=== PATIENT | male | born 1970 | race Caucasian/White ===

== ENCOUNTER 2018-04-16 09:00 | Emergency (ER) | payer OTHER, SELFPAY ==
[2018-04-16 09:03] VITALS: BP 135/77; PULSE 80; RESP 16; TEMP 37
--- NOTE | 2018-04-16 09:20 | ED.GENADUL ---
Disposition Clinical Impression: Corneal abrasion, left Disposition: HOME Condition: Good Instructions: Corneal Abrasion (ED) Additional Instructions: Please apply the antibiotic ointment 3 times a day. Please take Tylenol and Motrin as needed. Please use ice over your eye for any pain. Please follow-up with your environmental compliance officer or anesthesiology fellow in the next 24-48 hours. If you notice any worsening of your symptoms, or any new symptoms such as swelling in your eye, worsening discharge, worsening vision, cloudiness in your eye, vomiting, diarrhea, fever, chills, shortness of breath, chest pain, numbness, weakness, or fainting , please return immediately to the emergency department for reevaluation. Please follow up with your primary care provider as soon as possible for reassessment and reevaluation. As always, it was a pleasure participating in your medical care today. Medical Decision Making - Medical Decision Making This is a 47-year-old male with no medical problems who presents with left eye pain. He was struck in the eye by which ample working on a [employer] last night. He has mild pain since then. He is not a contact lens wear. Physical exam demonstrates evidence of a small corneal abrasion over the pupil. No evidence of foreign body, rust ring, or other abnormality. Patient's pain was completely resolved with tetracaine. Patient will be given erythromycin ointment, discharged home with close follow-up in the next 24-48 hours with ophthalmology at his home in [place]. We discussed red flags which to return the patient understands. I have extensively reviewed the treatment plan and discharge instructions with the patient and their family. I have addressed all patient concerns at this time. The patient and family was made aware of what symptoms to monitor for that would warrant a return to the emergency department. Discussed the plan with the patient and family, they demonstrate verbal understanding and agreement with our assessment and plan at this time. History of Present Illness - General Chief complaint: EyeProblem Stated complaint: EYE PROBLEM Time Seen by Provider: 04/16/18 09:20 - History of Present Illness Initial comments: This is a 47-year-old male with no significant past medical history, no prior surgeries, no medications who presents today for left eye pain he was working last night with a chainsaw and a wood chip flew got him in his left eye. He had immediate pain, he has been icing it since then and washed it out initially. He had continued pain this morning, with no significant relief of symptoms and so he came here for evaluation. He denies any headache, fever, chills, vomiting, diarrhea, rash, chest pain, shortness of breath, dysuria or hematuria. He does admit to mild blurry vision in the left eye secondary to the pain, he also admits to increased tearing in his left eye. Patient denies any IV or illicit drug use. He has no other complaints at this time. - Related Data Allergies Allergy/AdvReac Type Severity Reaction Status Date / Time No Known Allergies Allergy Unverified 04/16/18 09:08 Review of Systems Other: 10 point review of systems was performed, pertinent positives and negatives are noted in the history of present illness. General Exam - Other Other exam information: 1.Const: Well-nourished, Well-developed, appearing stated age 2.Eyes: PERRL, no conjunctival injection, patient does demonstrate minimal swelling of the left lid. No pain with movement of the eye. No signs of luan-orbital cellulitis or orbital cellulitis. Fluorescein stain does show evidence of a corneal abrasion over the pupil in the left eye. Eversion of the lid demonstrates no evidence of retained foreign body, no foreign body noted on eye. No rust ring. Vision is intact in the left eye. Color vision is intact. 3.ENT: Atraumatic external nose and ears. Moist MM. Neck: Symmetric, trachea midline, No thyromegaly. There is no evidence of raccoon eyes, gillis sign, CSF rhinorrhea, mastoid tenderness, cranial crepitus, hemotympanum, exophthalmos, or hyphema. 4.CVS: +S1/S2, No murmurs or gallops. Peripheral pulses 2+ and equal in all extremities. Brisk capillary refill in all extremities. 5.RESP: Unlabored respiratory effort. Clear to auscultation bilaterally. No wheezes rales or rhonchi 6.GI: Soft, Nontender/Nondistended, No hepatosplenomegaly. No guarding or rebound. 7.MSK: Normocephalic/Atraumatic, Extremities w/o deformity or ttp No cyanosis or clubbing, Normal movement of all extremities 8.Skin: Warm, Dry. No rashes or lesions. 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 Sensation grossly intact, no focal neurologic deficits. 10.Psych: (AAO) x3. Appropriate mood and affect Course Vital Signs - 24 hr 04/16/18 09:03 Temperature 37 C Pulse 80 Respiratory 16 Rate Blood Pressure 135/77
--- NOTE | 2018-04-16 09:23 | ED.GENADUL_ITS ---
Disposition Clinical Impression: Corneal abrasion, left Disposition: HOME Condition: Good Instructions: Corneal Abrasion (ED) Additional Instructions: Please apply the antibiotic ointment 3 times a day. Please take Tylenol and Motrin as needed. Please use ice over your eye for any pain. Please follow-up with your brick cleaner or plant utilities engineer in the next 24-48 hours. If you notice any worsening of your symptoms, or any new symptoms such as swelling in your eye, worsening discharge, worsening vision, cloudiness in your eye, vomiting, diarrhea, fever, chills, shortness of breath, chest pain, numbness, weakness, or fainting , please return immediately to the emergency department for reevaluation. Please follow up with your primary care provider as soon as possible for reassessment and reevaluation. As always, it was a pleasure participating in your medical care today. Medical Decision Making - Medical Decision Making This is a 47-year-old male with no medical problems who presents with left eye pain. He was struck in the eye by which ample working on a [employer] last night. He has mild pain since then. He is not a contact lens wear. Physical exam demonstrates evidence of a small corneal abrasion over the pupil. No evidence of foreign body, rust ring, or other abnormality. Patient's pain was completely resolved with tetracaine. Patient will be given erythromycin ointment, discharged home with close follow-up in the next 24-48 hours with ophthalmology at his home in [place]. We discussed red flags which to return the patient understands. I have extensively reviewed the treatment plan and discharge instructions with the patient and their family. I have addressed all patient concerns at this time. The patient and family was made aware of what symptoms to monitor for that would warrant a return to the emergency department. Discussed the plan with the patient and family, they demonstrate verbal understanding and agreement with our assessment and plan at this time. History of Present Illness - General Chief complaint: EyeProblem Stated complaint: EYE PROBLEM Time Seen by Provider: 04/16/18 09:20 - History of Present Illness Initial comments: This is a 47-year-old male with no significant past medical history, no prior surgeries, no medications who presents today for left eye pain he was working last night with a chainsaw and a wood chip flew got him in his left eye. He had immediate pain, he has been icing it since then and washed it out initially. He had continued pain this morning, with no significant relief of symptoms and so he came here for evaluation. He denies any headache, fever, chills, vomiting, diarrhea, rash, chest pain, shortness of breath, dysuria or hematuria. He does admit to mild blurry vision in the left eye secondary to the pain, he also admits to increased tearing in his left eye. Patient denies any IV or illicit drug use. He has no other complaints at this time. - Related Data Allergies Allergy/AdvReac Type Severity Reaction Status Date / Time No Known Allergies Allergy Unverified 04/16/18 09:08 Review of Systems Other: 10 point review of systems was performed, pertinent positives and negatives are noted in the history of present illness. General Exam - Other Other exam information: 1.Const: Well-nourished, Well-developed, appearing stated age 2.Eyes: PERRL, no conjunctival injection, patient does demonstrate minimal swelling of the left lid. No pain with movement of the eye. No signs of luan- orbital cellulitis or orbital cellulitis. Fluorescein stain does show evidence of a corneal abrasion over the pupil in the left eye. Eversion of the lid demonstrates no evidence of retained foreign body, no foreign body noted on eye. No rust ring. Vision is intact in the left eye. Color vision is intact. 3.ENT: Atraumatic external nose and ears. Moist MM. Neck: Symmetric, trachea midline, No thyromegaly. There is no evidence of raccoon eyes, gillis sign, CSF rhinorrhea, mastoid tenderness, cranial crepitus, hemotympanum, exophthalmos , or hyphema. 4.CVS: +S1/S2, No murmurs or gallops. Peripheral pulses 2+ and equal in all extremities. Brisk capillary refill in all extremities. 5.RESP: Unlabored respiratory effort. Clear to auscultation bilaterally. No wheezes rales or rhonchi 6.GI: Soft, Nontender/Nondistended, No hepatosplenomegaly. No guarding or rebound. 7.MSK: Normocephalic/Atraumatic, Extremities w/o deformity or ttp No cyanosis or clubbing, Normal movement of all extremities 8.Skin: Warm, Dry. No rashes or lesions. 9.Neuro: usability specialist II-XII grossly intact. Sensation grossly intact, no focal neurologic deficits. 10.Psych: (AAO) x3. Appropriate mood and affect Course Vital Signs - 24 hr 04/16/18 09:03 Temperature 37 C Pulse 80 Respiratory 16 Rate Blood Pressure 135/77
[2018-04-16] MEDS: Tetracaine 0.5% 4 ML BTL (09:29)
[2018-04-16] MEDS: Erythromycin Ophth Oint 3.5 GM TUBE 1 GM OS (09:29)
[2018-04-16 09:33] VITALS: BP 135/77; PULSE 80; RESP 16; TEMP 37; O2SAT 100
== END 2018-04-16 09:34 | disposition home or self-care (01) ==
PROVIDERS: Emergency Provider Student in an Organized Health Care Education/Training Program
DX: S05.02XA Injury of conjunctiva and corneal abrasion without foreign body, left eye, initial encounter (principal); W22.8XXA Striking against or struck by other objects, initial encounter
CPT/HCPCS: 99283